=== PATIENT | male | born 1995 | race Two or more races ===

== ENCOUNTER 2017-11-11 12:49 | Emergency (ER) | payer OTHER ==
[2017-11-11 12:55] VITALS: RESP 16; TEMP 97.9; O2SAT 97
--- NOTE | 2017-11-11 13:51 | EDPHY ---
H & P Stated Complaint: left lower quad abd pain 6 months. worse after eating certain foods HPI/ROS: CHIEF COMPLAINT: Abdominal discomfort HISTORY OF PRESENT ILLNESS: This patient is a healthy 22 year old male complaining of abdominal pain. This has been ongoing for the past six months. His discomfort is generally in his lower left quadrant and is occasionally so severe it prevents him from sleeping. He endorses frequent flatulence. He has occasional diarrhea. His last bowel movement was this morning and was normal. In general, his symptoms seem related to certain foods including dairy products, eggs, and coffee. He has tried stopping these foods, but has not achieved complete relief. He has not been evaluated for this in the past. He has not taken any OTC medications. He denies fever, vomiting, blood in his bowel movements, urinary complaints, or other associated symptoms. REVIEW OF SYSTEMS: A ten point review of systems was performed and is negative with the exception of the items mentioned in the HPI. Past medical history: Denies. Past surgical history: Noncontributory. Family history: Noncontributory. Social history: Student at [employer]. Current tobacco use, 1/2 pack per day. No alcohol consumption. General Appearance: Alert. Vital signs reviewed. Blood pressure 129/84 at triage. Eyes: Pupils equal and round, no conjunctival injection, no discharge. Anicteric. ENT, Mouth: Mucous membranes are moist, no oropharyngeal erythema or edema. Neck: No lymphadenopathy, supple. Respiratory: Lungs are clear to auscultation; no wheezes, rales, or rhonchi. Cardiovascular: Regular rate and rhythm; no murmur, rub, or gallop. Gastrointestinal: Tenderness to left lower quadrant. No guarding. Abdomen is soft, no masses or organomegaly, bowel sounds normal. Skin: Warm and dry, no rashes on exposed skin, normal color. Back: Nontender to palpation over the thoracolumbar spine. No CVAT. Extremities: No lower extremity edema, no calf tenderness or swelling. Neurological: Alert and oriented. Moving all four extremities easily and equally. Psychiatric: Normal affect. - Personal History Current Tetanus/Diphtheria Vaccine: Unsure Current Tetanus Diphtheria and Acellular Pertussis (TDAP): Unsure - Medical/Surgical History Hx Asthma: No Hx Chronic Respiratory Disease: No Hx Diabetes: No Hx Cardiac Disease: No Hx Renal Disease: No Hx Cirrhosis: No Hx Alcoholism: No Hx HIV/AIDS: No Hx Splenectomy or Spleen Trauma: No - Social History Smoking Status: Never smoked Constitutional: Initial Vital Signs Temperature (C) 36.6 C 11/11/17 12:52 Heart Rate 65 11/11/17 12:52 Respiratory Rate 16 11/11/17 12:52 Blood Pressure 129/84 H 11/11/17 12:52 O2 Sat (%) 97 11/11/17 12:52 O2 Delivery Mode Room Air Allergies/Adverse Reactions: No Known Allergies Allergy (Unverified 11/11/17 12:58) Medical Decision Making ED Course/Re-evaluation: This 22 year old male presents with six month history of intermittent left lower quadrant abdominal pain with associated flatulence and diarrhea, generally related to consumption of certain foods. Exam reveals left lower quadrant tenderness. Plan for laboratory studies including CBC, BMP. Laboratory studies reviewed, all within normal limits with the exception that WBC is slightly low. No evidence of infection, liver dysfunction, or other acute processes. 15:12 Reassessed patient. Discussed laboratory results. I recommended he follow up with a supervisory cbp officer for further evaluation. I suggested he keep a food diary to track his symptoms. I also recommended [id number] treatments such as Gas-X, Pepcid, or Zantac. The patient is concerned regarding his colon, and I discussed followup with GI for this as well. I do not feel that additional emergency department evaluation is needed at this time. He does not have a surgical abdomen. I do not suspect appendicitis or cholecystitis or pancreatitis. Diverticulitis is unlikely in a 22-year-old. He has not had vomiting or diarrhea and I do not think that he has gastroenteritis. Plan to discharge home in good condition. Return precautions discussed. The patient is comfortable with this plan. - Data Points Laboratory Results: Laboratory Results 11/11/17 14:30 11/11/17 14:30 Departure - Departure Disposition: Home, Routine, Self-Care Condition: Good Instructions: Gas and Bloating (ED), Abdominal Pain (ED) Additional Instructions: 1. Follow up with [facility] clinic for further evaluation. We have also given you a referral to a GI specialist for further evaluation. 2. You may try [id number] remedies such as Gas-X and antacids such as Pepcid or Zantac for symptom relief. Take antacids for at least two weeks as directed on the packaging. 3. You may want to keep notes of the foods you eat when your symptoms are increased. 4. Return to the emergency department for severe or changing pain, fever, uncontrollable vomiting or diarrhea, blood in your vomit or bowel movements, or other worsening of condition. Referrals: [facility],. [Clinic] - As per Instructions Naga Ro MD [Medical Doctor] - As per Instructions Report Scribed for: Vielka Gallo Report Scribed by: Naz Pineda Date of Report: 11/11/17 Time of Report: 14:05 Physician Review and Approval Statement: 11/11/17 13:51 Portions of this note were transcribed by the medical receptionist. I, Dr. Vielka Gallo, personally performed the history, physical exam, and medical decision- making; and confirmed the accuracy of the information in the transcribed note.
[2017-11-11 14:45] LABS: PLATELET COUNT 223 10^3/uL (150-400)
[2017-11-11 15:37] VITALS: BP 122/79; PULSE 66
== END 2017-11-11 15:36 | disposition home or self-care (01) ==
DX: R14.0 Abdominal distension (gaseous) (principal)